=== PATIENT | female | born 1965 | race Two or more races ===

== ENCOUNTER 2025-04-09 16:38 | Emergency (ER) | payer BC ==
[~2025-04-09] VITALS: Ht 152.4 cm; Wt 82.6 kg
[2025-04-09 16:53] VITALS: BP 130/54; O2SAT 99
[2025-04-09] MEDS ORDERED: LIPITOR40 M1 (16:53)
[2025-04-09] MEDS ORDERED: GRALISE600 MG (16:53)
[2025-04-09] MEDS ORDERED: OMEPRAZOLE MAGN20 MG (16:54)
[2025-04-09] MEDS ORDERED: FAMOTIDINE/PF 20 MG in 0.9 % SODIUM CHLORIDE 8 ML IV PUSH STA (17:19)
[2025-04-09] MEDS ORDERED: KETOROLAC TROMETHAMINE 30 MG VIAL ONE (17:23)
[2025-04-09] MEDS ORDERED: ONDANSETRON HCL 2 MG/ML VIAL ONE (17:23)
[2025-04-09] MEDS ORDERED: FAMOTIDINE/PF 20 MG/2 ML VIAL ONE (17:23)
[2025-04-09] MEDS ORDERED: 0.9 % SODIUM CHLORIDE 1,000 ML IV SCH (17:30)
[2025-04-09] MEDS ORDERED: ONDANSETRON HCL 2 MG/ML VIAL IV ONE (17:30)
[2025-04-09] MEDS ORDERED: KETOROLAC TROMETHAMINE 30 MG VIAL IV ONE (17:30)
[2025-04-09 18:29] LABS: BASO % 0.5 % (0.1-1.2); EOS # 0.02 (0.04-0.54); EOS % 0.5 % (0.7-7.0); HEMATOCRIT 37.2 % (34.1-44.9); HEMOGLOBIN 12.1 g/dL (11.2-15.7); LYMPH % 22.4 % (19.3-53.1); MEAN CORPUSCULAR HEMOGLOBIN 26.9 pg (25.6-32.2); MONO # 0.56 (0.24-0.82); NEUT # 2.51 (1.56-6.13); NEUT % 62.6 % (34.0-71.1); PLATELET COUNT 266 K/uL (163-369); RED CELL DISTRIBUTION WIDTH 13.7 % (11.6-14.4)
[2025-04-09 18:48] LABS: ALBUMIN 3.8 gm/dL (3.4-5.0); BILIRUBIN TOTAL 0.56 mg/dL (0.3-1.2); CALCIUM 9.2 mg/dL (8.5-10.1); CREATININE SERUM 0.63 mg/dL (0.55-1.02); GFR 97.06; GLOBULINA 3.4 G/DL (2.4-3.5); POTASSIUM 3.72 mEq/L (3.5-5.1); TOTAL PROTEIN 7.2 gm/dL (6.4-8.2)
[2025-04-09 19:35] LABS: PH,URINE 6.5 (5.0-8.0); URINE APPEARANCE Clear; URINE BILIRRUBIN Negative (NEGATIVE); URINE BLOOD Negative; URINE COLOR Yellow; URINE GLUCOSE Negative (NEGATIVE); URINE KETONE 15 (NEGATIVE); URINE LEUKOCYTE Negative; URINE NITRATE Negative; URINE PROTEIN Negative (NEGATIVE)
[2025-04-09 19:42] LABS: URINE BACTERIA 24.4 uL (0.0-1933); URINE EPITHELIAL CELLS 8.5 uL (0.0-38.8); URINE WBC 3.4 uL (0.0-23.2)
== END 2025-04-09 23:13 | disposition home or self-care (01) ==
LOC: ER 17:28
PROVIDERS: General Practice
DX: R10.31 Right lower quadrant pain (principal)
CPT/HCPCS: 36415; 74177; Q9965